=== PATIENT | female | born 1960 | race Caucasian/White ===

== ENCOUNTER 2024-01-17 20:16 | Emergency (ER) | payer MEDICAID ==
[~2024-01-17] VITALS: Ht 152.4 cm; Wt 75.0 kg
[2024-01-17 20:30] VITALS: O2SAT 100
[2024-01-17 21:49] LABS: BASOPHILS % 0.5 % (0.0-2.0); DIFFERENTIAL COMMENT 0; HEMATOCRIT. 30.9 % (36.0-48.0); HEMOGLOBIN. 9.4 g/dL (12.0-16.0); LYMPHOCYTES % 31.2 % (20.0-50.0); MEAN CORPUSCULAR HEMOGLOBIN 23.1 pg (28.0-32.0); MEAN CORPUSCULAR HGB CONC 30.6 g/dL (31.0-37.0); MEAN CORPUSCULAR VOLUME 75.6 fL (81.0-99.0); MEAN PLATELET VOLUME 9.5 fl (7.4-10.4); MONOCYTES % 5.9 % (2.0-8.0); NEUTROPHILS % 60.4 % (40.0-76.0); PLATELET 339 x1000/uL (130-400); RED BLOOD CELL COUNT 4.08 mill/uL (4.2-5.4); RED CELL DISTRIBUTION WIDTH 19.2 % (11.6-14.6); WHITE BLOOD COUNT 10.1 x1000/uL (4.5-11.0)
[2024-01-17 21:57] LABS: CLARITY URINE CLEAR (CLEAR); COLOR URINE YELLOW (YELLOW); GLUCOSE URINE 3+ (NEGATIVE); KETONES URINE 1+ (NEGATIVE); LEUKOCYTE ESTERASE URINE NEGATIVE (NEGATIVE); NITRITE URINE NEGATIVE (NEGATIVE); OCCULT BLOOD URINE NEGATIVE (NEGATIVE); PH URINE 5.5 (4.5-8.0); PROTEIN URINE 1+ (NEGATIVE); SPECIFIC GRAVITY URINE 1.029 (1.005-1.030); UROBILINOGEN URINE 0.2 E.U./dL (0.2-1.0)
[2024-01-17 21:57] LABS: CHLORIDE 104 mEq/L (98-107); POTASSIUM 3.4 mEq/L (3.5-5.1); SODIUM 135 mEq/L (136-145)
[2024-01-17 21:58] LABS: CALCIUM 9.5 mg/dL (8.7-10.4); CARBON DIOXIDE 23 mEq/L (21-32)
[2024-01-17 22:03] LABS: CREATININE 1.1 mg/dL (0.6-1.0); GLUCOSE 327 mg/dL (70-105); UREA NITROGEN BLOOD 9 mg/dL (9-23)
[2024-01-17 22:04] LABS: TROPONIN I HIGH SENSITIVITY 8 ng/L (3.0-34)
[2024-01-17 22:05] LABS: ALANINE AMINOTRANSFERASE 19 IU/L (10-49); ALBUMIN 3.9 g/dL (3.2-4.8); ASPARTATE AMINOTRANSFERASE 15 IU/L (<34); BILIRUBIN TOTAL 0.4 mg/dL (0.1-1.0); INR 0.9; PROTEIN TOTAL 6.5 g/dL (6.0-8.3); PROTHROMBIN TIME 10.5 sec (9.6-11.0)
[2024-01-17] MEDS: SODIUM CHLORIDE 0.9% 1,000 ML IV ONE (22:06)
[2024-01-17] MEDS: ONDANSETRON HCL 4MG/2ML INJ IV STA (22:06)
[2024-01-17 22:10] LABS: BILIRUBIN DIRECT < 0.1 mg/dL (<=3.0)
[2024-01-17] MEDS: KETOROLAC 30MG/ML VIAL IV STA (22:10)
[2024-01-17] MEDS: MAGNESIUM/ALUMINUM HYDROXIDE/SIMETHICONE 30ML UDC PO ONE (22:27)
[2024-01-17] MEDS: FAMOTIDINE 20MG TABLET PO ONE (22:28)
[2024-01-17 22:47] LABS: BACTERIA URINE NONE SEEN; RBC URINE 0-2 /hpf (0-2); SQUAMOUS EPITHELIAL CELL URINE FEW /lpf (RARE/1+); WBC URINE 0-2 /hpf (0-2)
[2024-01-17] MEDS ORDERED: FAMO-135 MT (23:17)
[2024-01-17] MEDS ORDERED: ONDA-239 PO (23:17)
[2024-01-18 00:06] VITALS: BP 134/89; PULSE 88; RESP 18; TEMP 37.00296; O2SAT 100
== END 2024-01-18 00:39 | disposition home or self-care (01) ==
LOC: ER 20:16
DX: K52.9 Noninfective gastroenteritis and colitis, unspecified (principal); N17.9 Acute kidney failure, unspecified; I11.9 Hypertensive heart disease without heart failure; I10 Essential (primary) hypertension; R11.2 Nausea with vomiting, unspecified
CPT/HCPCS: 99285; 74176; 96374; 71045; 96361; 96375; 80076; 80048; 81003; 83880; 83690; 85025; 85610; 84484; 36415; 93005; J1885; J2405; J7030

== ENCOUNTER 2025-02-03 04:22 | Inpatient (IN) | payer MEDICAID, OTHER ==
[~2025-02-03] VITALS: Ht 157.5 cm; Wt 69.9 kg
[~2025-02-03 04:22] MED LIST: FAMO-135 MT; ONDA-239 PO
[2025-02-03 04:36] VITALS: O2SAT 95
[2025-02-03] MEDS ORDERED: VANCOMYCIN 1000MG/250ML 250 ML IV STA ×2 (05:30)
[2025-02-03 05:58] LABS: BG DEOXYHEMOGLOBIN 3.2 % (0.0-5.0)
[2025-02-03 06:09] LABS: CREATININE 1.1 mg/dL (0.6-1.0); INR 0.9
[2025-02-03 06:10] LABS: TROPONIN I HIGH SENSITIVITY 4 ng/L (3.0-34); UREA NITROGEN BLOOD 25 mg/dL (9-23)
[2025-02-03 06:11] LABS: ASPARTATE AMINOTRANSFERASE 24 IU/L (<34); PROTEIN TOTAL 6.3 g/dL (6.0-8.3)
[2025-02-03 06:12] LABS: BILIRUBIN DIRECT < 0.1 mg/dL (<=3.0); BILIRUBIN TOTAL 0.2 mg/dL (0.1-1.0)
[2025-02-03 06:23] LABS: CLARITY URINE CLEAR (CLEAR); COLOR URINE YELLOW (YELLOW); GLUCOSE URINE 3+ (NEGATIVE); KETONES URINE NEGATIVE (NEGATIVE); LEUKOCYTE ESTERASE URINE NEGATIVE (NEGATIVE); NITRITE URINE NEGATIVE (NEGATIVE); OCCULT BLOOD URINE NEGATIVE (NEGATIVE); PH URINE 6.0 (4.5-8.0); PROTEIN URINE NEGATIVE (NEGATIVE); SPECIFIC GRAVITY URINE 1.030 (1.005-1.030); UROBILINOGEN URINE 0.2 E.U./dL (0.2-1.0)
[2025-02-03 06:25] LABS: BASOPHILS % 0.7 % (0.0-2.0); EOSINOPHILS % 0.3 % (0.0-5.0); HEMATOCRIT. 30.1 % (36.0-48.0); HEMOGLOBIN. 9.5 g/dL (12.0-16.0); LYMPHOCYTES % 19.1 % (20.0-50.0); MEAN PLATELET VOLUME 10.4 fl (7.4-10.4); MONOCYTES % 3.9 % (2.0-8.0); NEUTROPHILS % 76.0 % (40.0-76.0); PLATELET 335 x1000/uL (130-400); RED BLOOD CELL COUNT 3.89 mill/uL (4.2-5.4); RED CELL DISTRIBUTION WIDTH 17.8 % (11.6-14.6)
[2025-02-03 06:37] LABS: *AMPHETAMINES SCREEN URINE NEGATIVE (NEGATIVE); *BENZODIAZEPINES SCREEN URINE NEGATIVE (NEGATIVE)
[2025-02-03 06:38] LABS: *BARBITURATES SCREEN URINE NEGATIVE (NEGATIVE); *COCAINE SCREEN URINE NEGATIVE (NEGATIVE); CANNABINOID URINE SCREEN NEGATIVE (NEGATIVE); ECSTASY MDMA SCREEN URINE NEGATIVE (NEGATIVE); METHADONE URINE SCREEN NEGATIVE (NEGATIVE); OPIATES URINE SCREEN NEGATIVE (NEGATIVE); PHENCYCLIDINE URINE SCREEN NEGATIVE (NEGATIVE)
[2025-02-03] MEDS: PIPERACILLIN/TAZO 3.375G/50ML 50 ML IV SCH ×2 (07:03→14:39)
[2025-02-03] MEDS: LACTATED RINGERS 1,000 ML IV SCH (07:04)
[2025-02-03] MEDS: INSULIN REGULAR (HUMULIN R) 1000UNITS/10ML VIAL IV ONE (07:17)
[2025-02-03] MEDS: VANCOMYCIN 1GM/200ML PMX (BAXTER) IV SCH (07:23)
[2025-02-03 07:31] LABS: BACTERIA URINE NONE SEEN; RBC URINE 0-2 /hpf (0-2); SQUAMOUS EPITHELIAL CELL URINE FEW /lpf (RARE/1+); WBC URINE 0-2 /hpf (0-2)
[2025-02-03 08:45] VITALS: BP 151/70; PULSE 94; RESP 16; TEMP 36.4; TEMP 36.4736; O2SAT 100
[2025-02-03 09:09] LABS: TROPONIN I HIGH SENSITIVITY 10 ng/L (3.0-34)
[2025-02-03] MEDS ORDERED: DEXTROSE 50% WATER 50ML SYRINGE IV PRN (11:30)
[2025-02-03] MEDS ORDERED: ONDANSETRON HCL 4MG/2ML INJ IV PRN (11:30)
[2025-02-03 12:00] VITALS: BP 148/93; PULSE 88; RESP 17; TEMP 36; O2SAT 100
[2025-02-03] MEDS: BLOOD SUGAR DIAGNOSTIC STRIP TEST SCH (12:12)
[2025-02-03] MEDS: INSULIN GLARGINE 100 UNITS/ML SUBCUT NR (12:13)
[2025-02-03] MEDS: INSULIN LISPRO 100 UNITS/ML SUBCUT SCH (14:39)
[2025-02-03 16:00] VITALS: BP 121/61; PULSE 87; RESP 17; TEMP 35.8; O2SAT 99
[2025-02-03 20:00] VITALS: BP 121/73; PULSE 91; RESP 18; TEMP 36.2; O2SAT 100
[2025-02-03] MEDS: INSULIN GLARGINE 100 UNITS/ML SUBCUT SCH (21:19)
[2025-02-04] VITALS (7 sets, daily range): BP systolic 107–138; BP diastolic 60–73; PULSE 86–114; RESP 16–19; TEMP 35.1–36.7; O2SAT 97–100
[2025-02-04 07:10] LABS: CREATININE 0.9 mg/dL (0.6-1.0); UREA NITROGEN BLOOD 10 mg/dL (9-23)
[2025-02-04 07:55] LABS: BASOPHILS % 1.0 % (0.0-2.0); EOSINOPHILS % 3.1 % (0.0-5.0); HEMATOCRIT. 28.7 % (36.0-48.0); HEMOGLOBIN. 9.3 g/dL (12.0-16.0); LYMPHOCYTES % 29.5 % (20.0-50.0); MEAN PLATELET VOLUME 10.1 fl (7.4-10.4); MONOCYTES % 4.6 % (2.0-8.0); NEUTROPHILS % 61.8 % (40.0-76.0); PLATELET 293 x1000/uL (130-400); RED BLOOD CELL COUNT 3.75 mill/uL (4.2-5.4); RED CELL DISTRIBUTION WIDTH 17.1 % (11.6-14.6)
[2025-02-05] VITALS: BP 137/70; PULSE 109; RESP 18; TEMP 36.6; O2SAT 98
[2025-02-05 04:00] VITALS: BP 117/63; PULSE 101; RESP 19; TEMP 36.6; O2SAT 96
[2025-02-05 06:53] LABS: BASOPHILS % 0.8 % (0.0-2.0); EOSINOPHILS % 2.0 % (0.0-5.0); HEMATOCRIT. 29.4 % (36.0-48.0); HEMOGLOBIN. 9.3 g/dL (12.0-16.0); LYMPHOCYTES % 32.5 % (20.0-50.0); MEAN PLATELET VOLUME 10.0 fl (7.4-10.4); MONOCYTES % 3.5 % (2.0-8.0); NEUTROPHILS % 61.2 % (40.0-76.0); PLATELET 307 x1000/uL (130-400); RED BLOOD CELL COUNT 3.80 mill/uL (4.2-5.4); RED CELL DISTRIBUTION WIDTH 17.1 % (11.6-14.6)
[2025-02-05 07:05] LABS: CREATININE 0.9 mg/dL (0.6-1.0); UREA NITROGEN BLOOD 12 mg/dL (9-23)
[2025-02-05 08:00] VITALS: BP 117/79; PULSE 105; RESP 16; TEMP 36.3; O2SAT 100
[2025-02-05 11:50] VITALS: BP 122/69; PULSE 102; RESP 18; TEMP 36.3; O2SAT 95
[2025-02-05 16:00] VITALS: BP 145/60; PULSE 101; RESP 16; TEMP 36.4; O2SAT 97
[2025-02-05 20:00] VITALS: BP 155/59; PULSE 120; RESP 20; TEMP 36.1; O2SAT 100
[2025-02-05] MEDS: ACETAMINOPHEN 325MG TABLET PO PRN (21:16)
[2025-02-06] VITALS: BP 148/60; PULSE 100; RESP 16; TEMP 36.1; O2SAT 100
[2025-02-06 04:00] VITALS: BP 147/78; PULSE 103; RESP 16; TEMP 36.1; O2SAT 95
[2025-02-06 07:20] VITALS: BP 117/59; PULSE 102; RESP 16; TEMP 36.6; O2SAT 99
[2025-02-06 12:52] VITALS: BP 122/74; PULSE 64; RESP 18; TEMP 97.4
== END 2025-02-06 13:20 | disposition home or self-care (01) | DRG 720 ==
LOC: ER 04:22 → 6WST 06:38 → EDBEDREQ 06:43 → EDBEDREQTM 06:43 → ENRESERV 06:53
PROVIDERS: ADMIT Internal Medicine; ATTEND Internal Medicine
DX: A41.9 Sepsis, unspecified organism (principal); G93.41 Metabolic encephalopathy; E87.20 Acidosis, unspecified; E11.52 Type 2 diabetes mellitus with diabetic peripheral angiopathy with gangrene; N17.9 Acute kidney failure, unspecified; E11.621 Type 2 diabetes mellitus with foot ulcer; D50.9 Iron deficiency anemia, unspecified; E11.65 Type 2 diabetes mellitus with hyperglycemia; E66.01 Morbid (severe) obesity due to excess calories; Z68.36 Body mass index [BMI] 36.0-36.9, adult; I10 Essential (primary) hypertension; L97.519 Non-pressure chronic ulcer of other part of right foot with unspecified severity; M85.871 Other specified disorders of bone density and structure, right ankle and foot
CPT/HCPCS: 36415; 71045; 73630; 80048; 80076; 80305; 80307; 80320; 80329; 81003; 82010; 82140; 82375; 82550; 82803; 82962; 83605; 83735; 83880; 84145; 84484; 85025; 93005; 93923; 99291; A4606; J1815; J2543; J3373; G0480

== ENCOUNTER 2025-02-16 10:13 | Inpatient (IN) | payer OTHER ==
[~2025-02-16] VITALS: Ht 152.4 cm; Wt 68.9 kg
[2025-02-16 10:14] VITALS: O2SAT 99
[2025-02-16 10:45] LABS: BG DEOXYHEMOGLOBIN 26.9 % (0.0-5.0)
[2025-02-16 10:59] LABS: BASOPHILS % 0.7 % (0.0-2.0); EOSINOPHILS % 0.1 % (0.0-5.0); HEMATOCRIT. 29.8 % (36.0-48.0); HEMOGLOBIN. 9.0 g/dL (12.0-16.0); LYMPHOCYTES % 13.4 % (20.0-50.0); MEAN PLATELET VOLUME 10.5 fl (7.4-10.4); MONOCYTES % 2.4 % (2.0-8.0); NEUTROPHILS % 83.4 % (40.0-76.0); PLATELET 327 x1000/uL (130-400); RED BLOOD CELL COUNT 3.80 mill/uL (4.2-5.4); RED CELL DISTRIBUTION WIDTH 17.3 % (11.6-14.6)
[2025-02-16] MEDS: SODIUM CHLORIDE 0.9% 1,000 ML IV ONE (10:59)
[2025-02-16 11:18] LABS: CREATININE 1.3 mg/dL (0.6-1.0)
[2025-02-16 11:19] LABS: TROPONIN I HIGH SENSITIVITY < 4 ng/L (3.0-34); UREA NITROGEN BLOOD 28 mg/dL (9-23)
[2025-02-16 11:20] LABS: ASPARTATE AMINOTRANSFERASE 9 IU/L (<34)
[2025-02-16 11:21] LABS: BILIRUBIN DIRECT < 0.1 mg/dL (<=3.0); BILIRUBIN TOTAL 0.2 mg/dL (0.1-1.0); PROTEIN TOTAL 6.3 g/dL (6.0-8.3)
[2025-02-16 11:26] LABS: CLARITY URINE CLEAR (CLEAR); COLOR URINE YELLOW (YELLOW); PH URINE 5.0 (4.5-8.0); PROTEIN URINE NEGATIVE (NEGATIVE); SPECIFIC GRAVITY URINE 1.026 (1.005-1.030)
[2025-02-16 11:27] LABS: GLUCOSE URINE 3+ (NEGATIVE); KETONES URINE NEGATIVE (NEGATIVE); LEUKOCYTE ESTERASE URINE NEGATIVE (NEGATIVE); NITRITE URINE NEGATIVE (NEGATIVE); OCCULT BLOOD URINE NEGATIVE (NEGATIVE); UROBILINOGEN URINE 0.2 E.U./dL (0.2-1.0)
[2025-02-16 11:52] LABS: BACTERIA URINE TRACE; RBC URINE 0-2 /hpf (0-2); SQUAMOUS EPITHELIAL CELL URINE 1+ /lpf (RARE/1+); WBC URINE 0-2 /hpf (0-2); YEAST URINE RARE
[2025-02-16] MEDS: INSULIN REGULAR (HUMULIN R) 1000UNITS/10ML VIAL IV ONE (13:01)
[2025-02-16] MEDS ORDERED: ACETAMINOPHEN 325MG TABLET PO PRN (14:00)
[2025-02-16] MEDS ORDERED: DEXTROSE 50% WATER 50ML SYRINGE IV PRN (14:00)
[2025-02-16] MEDS ORDERED: ONDANSETRON HCL 4MG/2ML INJ IV PRN (14:00)
[2025-02-16] MEDS ORDERED: IPRATROPIUM/ALBUTEROL 0.5-3(2.5)MG/3ML NEB HHN PRN (14:00)
[2025-02-16] MEDS: INSULIN GLARGINE 100 UNITS/ML SUBCUT SCH (14:06)
[2025-02-16 15:20] LABS: FOLIC ACID (FOLATE) SERUM 17.01 ng/mL (>5.38); VITAMIN B12 SERUM 436 pg/mL (211-911)
[2025-02-16] MEDS: SODIUM CHLORIDE 0.45% 1,000 ML IV SCH (15:37)
[2025-02-16 16:00] VITALS: BP 171/76; PULSE 81; RESP 17; TEMP 36.5; O2SAT 99
[2025-02-16] MEDS: INSULIN LISPRO 100 UNITS/ML SUBCUT SCH ×2 (16:04→17:52)
[2025-02-16 16:26] VITALS: BP 164/76; PULSE 79; RESP 17; TEMP 36.1956
[2025-02-16] MEDS: HYDRALAZINE 20MG/ML VIAL IV PRN (16:59)
[2025-02-16] MEDS: BLOOD SUGAR DIAGNOSTIC STRIP TEST SCH (17:11)
[2025-02-16] MEDS: AMLODIPINE 10MG TABLET PO SCH (17:42)
[2025-02-16] MEDS: PIPERACILLIN/TAZO 3.375G/50ML 50 ML IV SCH (17:42)
[2025-02-16 20:00] VITALS: BP 99/40; PULSE 89; RESP 18; TEMP 35.9; O2SAT 100
[2025-02-16] MEDS: HYDRALAZINE HCL 25MG TABLET PO SCH (21:00)
[2025-02-17] VITALS: BP 104/53; PULSE 89; RESP 18; TEMP 36.1; O2SAT 99
[2025-02-17 04:00] VITALS: BP 108/57; RESP 18; TEMP 35.6; O2SAT 100
[2025-02-17 08:00] VITALS: BP 135/51; PULSE 81; RESP 17; TEMP 36.6; O2SAT 99
[2025-02-17] MEDS: PANTOPRAZOLE SODIUM 40 MG/VIAL IV SCH (10:08)
[2025-02-17] MEDS ORDERED: LISI40TA21 MT (11:05)
[2025-02-17] MEDS ORDERED: CYCL5TAB3 MT (11:05)
[2025-02-17] MEDS ORDERED: TOPUD PO (11:05)
[2025-02-17 12:00] VITALS: BP 103/50; PULSE 85; RESP 17; TEMP 36.7; O2SAT 99
[2025-02-17 16:00] VITALS: BP 112/50; PULSE 93; RESP 16; TEMP 36.7; O2SAT 98
[2025-02-17 18:41] LABS: PLATELET 342 x1000/uL (130-400); RED BLOOD CELL COUNT 3.68 mill/uL (4.2-5.4); RED CELL DISTRIBUTION WIDTH 17.9 % (11.6-14.6)
[2025-02-17] MEDS: SODIUM CHLORIDE 0.9% 500 ML IV ONE (18:43)
[2025-02-17 18:57] LABS: CREATININE 0.9 mg/dL (0.6-1.0)
[2025-02-17 18:58] LABS: LDL CHOLESTEROL 173 mg/dL (5-100); TRIGLYCERIDE 537 mg/dL (0-150); TROPONIN I HIGH SENSITIVITY < 4 ng/L (3.0-34); UREA NITROGEN BLOOD 16 mg/dL (9-23)
[2025-02-17 18:59] LABS: ASPARTATE AMINOTRANSFERASE 21 IU/L (<34)
[2025-02-17 19:00] LABS: BILIRUBIN DIRECT < 0.1 mg/dL (<=3.0); BILIRUBIN TOTAL 0.2 mg/dL (0.1-1.0); PROTEIN TOTAL 5.8 g/dL (6.0-8.3)
[2025-02-17 19:02] LABS: T4 FREE 1.34 ng/dL (0.89-1.76)
[2025-02-17 19:30] LABS: *AMPHETAMINES SCREEN URINE NEGATIVE (NEGATIVE); *BARBITURATES SCREEN URINE NEGATIVE (NEGATIVE); *BENZODIAZEPINES SCREEN URINE NEGATIVE (NEGATIVE); *COCAINE SCREEN URINE NEGATIVE (NEGATIVE); CANNABINOID URINE SCREEN NEGATIVE (NEGATIVE); ECSTASY MDMA SCREEN URINE NEGATIVE (NEGATIVE); METHADONE URINE SCREEN NEGATIVE (NEGATIVE); OPIATES URINE SCREEN NEGATIVE (NEGATIVE); PHENCYCLIDINE URINE SCREEN NEGATIVE (NEGATIVE)
[2025-02-17 20:00] VITALS: BP 108/55; PULSE 95; RESP 18; TEMP 36.3; O2SAT 95
[2025-02-18] VITALS: BP 103/54; PULSE 95; RESP 18; TEMP 36.9; O2SAT 99
[2025-02-18 04:00] VITALS: BP 89/45; PULSE 97; RESP 18; TEMP 36.8; O2SAT 100
[2025-02-18 08:00] VITALS: BP 111/44; PULSE 113; RESP 18; TEMP 36.3; O2SAT 99
[2025-02-18] MEDS: POTASSIUM CHLORIDE 20MEQ TABLET SR PO SCH (09:46)
[2025-02-18] MEDS: SODIUM CHLORIDE 0.9% 500 ML IV ONE (11:51)
[2025-02-18 12:00] VITALS: BP 120/56; PULSE 79; RESP 18; TEMP 36.6; O2SAT 99
[2025-02-18 16:00] VITALS: BP 125/59; PULSE 79; RESP 16; TEMP 36.8; O2SAT 99
[2025-02-18 20:00] VITALS: BP 95/47; PULSE 100; RESP 16; TEMP 37.1; O2SAT 99
[2025-02-18] MEDS: ACETAMINOPHEN 325MG TABLET PO PRN (22:14)
[2025-02-19] VITALS (7 sets, daily range): BP systolic 94–127; BP diastolic 40–73; PULSE 80–116; RESP 16–18; TEMP 36.4–36.7; O2SAT 95–99
[2025-02-19 12:30] LABS: PLATELET 366 x1000/uL (130-400); RED BLOOD CELL COUNT 3.91 mill/uL (4.2-5.4); RED CELL DISTRIBUTION WIDTH 17.8 % (11.6-14.6)
[2025-02-19 12:46] LABS: CREATININE 1.0 mg/dL (0.6-1.0); UREA NITROGEN BLOOD 10 mg/dL (9-23)
[2025-02-19 12:48] LABS: PHOSPHORUS 3.5 mg/dL (2.5-4.9)
[2025-02-19] MEDS ORDERED: ATOR40TA70 MT (14:45)
[2025-02-19] MEDS: MAGNESIUM 4 G PREMIX 100 ML IV NR (15:30)
== END 2025-02-19 22:32 | disposition home or self-care (01) | DRG 52 ==
LOC: ER 10:13 → EDBEDREQ 10:24 → 5WST 11:54 → EDBEDREQTM 12:08 → EDBEDREQ 12:08 → ENRESERV 13:56 → 5WST 18:09
PROVIDERS: ADMIT Student in an Organized Health Care Education/Training Program; ATTEND Student in an Organized Health Care Education/Training Program
DX: G93.40 Encephalopathy, unspecified (principal); E11.52 Type 2 diabetes mellitus with diabetic peripheral angiopathy with gangrene; N17.9 Acute kidney failure, unspecified; E11.621 Type 2 diabetes mellitus with foot ulcer; D50.9 Iron deficiency anemia, unspecified; E11.65 Type 2 diabetes mellitus with hyperglycemia; I10 Essential (primary) hypertension; L97.519 Non-pressure chronic ulcer of other part of right foot with unspecified severity; E78.5 Hyperlipidemia, unspecified; E86.0 Dehydration; E86.1 Hypovolemia; E87.5 Hyperkalemia; M85.80 Other specified disorders of bone density and structure, unspecified site; Z79.4 Long term (current) use of insulin; Z87.442 Personal history of urinary calculi; Z79.899 Other long term (current) drug therapy
CPT/HCPCS: 36415; 71045; 73630; 80048; 80061; 80076; 80305; 81003; 82010; 82140; 82270; 82375; 82550; 82607; 82746; 82803; 82962; 83036; 83540; 83550; 83605; 83735; 83880; 83930; 84100; 84439; 84443; 84484; 85025; 85027; 87493; 93005; 93923; 96360; 99291; A4606; J0360; J1815; J2470; J2543; J3475; J7030